=== PATIENT | male | born 1985 | race African-American/Black ===

== ENCOUNTER 2017-10-07 13:14 | Emergency (ER) | payer SELFPAY ==
[2017-10-07 13:39] VITALS: BP 138/84; PULSE 99; RESP 18; TEMP 97.4
[2017-10-07 14:20] LABS: Appearance,Urine Clear (Clear); Bacteria,Urine Rare /hpf; Bilirubin,Urine Negative (Negative); Glucose,Urine (UA) Negative (Negative); Ketones,Urine Negative (Negative); Leukocyte Esterase,Urine Large (Negative); Mucus,Urine Few /hpf; Nitrite,Urine Negative (Negative); PH, Urine 6.5 (5.0-8.0); Particle Count 4157; Protein,Urine Trace (Negative); Specific Gravity,Urine 1.021 (1.001-1.035); UA Billing (MACRO vs. MICRO) MICRO; WBC,Urine 56 /hpf (0-5)
--- NOTE | 2017-10-07 14:24 | ED ---
General Adult HPI - General Chief complaint: Recheck/Abnormal Lab/Rx Stated complaint: numbness in hands & feet Time Seen by Provider: 10/07/17 13:42 Source: patient, RN notes reviewed Mode of arrival: ambulatory Limitations: no limitations - History of Present Illness Initial comments: This is a 32-year-old male who presents to emergency department with chief complaint of numbness and tingling. Patient states that for the past month his right hand and left leg have felt like pins and needles. He states that 3 months ago he started donating plasma. He also reports that he has a history of "shattered bones" in his left lower extremity. Patient states that the numbness and tingling is localized to digits 1through 3 on both palmar and dorsal aspect of right hand. He also reports that for the past week he has had burning when he urinates as well as a clear/white discharge. He reports that his girlfriend was recently tested and was negative for any STDs. Denies any genital sores. He states that his genital region has also been feeling numb. Denies fever, chills, chest pain, shortness of breath, abdominal pain, nausea or vomiting, constipation or diarrhea, hematuria, headache or vision changes. - Related Data Previous Rx's Medication Instructions Recorded Sulfamethox-Tmp 800-160Mg [Bactrim 1 tab PO Q12HR #20 tab 10/07/17 DS 800-160 mg] Allergies Allergy/AdvReac Type Severity Reaction Status Date / Time peach Allergy Swelling Verified 10/07/17 13:39 Review of Systems ROS Statement: Those systems with pertinent positive or pertinent negative responses have been documented in the HPI. ROS Other: All systems not noted in ROS Statement are negative. Past Medical History Past Medical History: No Reported History History of Any Multi-Drug Resistant Organisms: None Reported Past Surgical History: No Surgical Hx Reported Past Psychological History: Depression Smoking Status: Current every day smoker Past Alcohol Use History: None Reported Past Drug Use History: None Reported General Exam - General Exam Comments Initial Comments: General: Awake and alert, well-developed; in no apparent distress. HEENT: Head atraumatic, normocephalic. Pupils are equal, round and reactive to light. Extraocular movements intact. Neck: Supple. Normal ROM. Cardiovascular: Regular rate and rhythm. No murmurs, rubs or gallops. Chest symmetrical. Respiratory: Lungs clear to auscultation bilaterally. No wheezes, rales or rhonchi. Normal respiratory effort with no use of accessory muscles. Musculoskeletal: Normal ROM, no tenderness bilateral upper and lower extremities. Sensation is intact. Pulses are 2+ equal and palpable bilaterally. Skin: [place], warm and dry without rashes or lesions. Neurological: Alert and oriented x3. CN II-XII grossly intact. Speech is fluent and answers are appropriate. No focal neuro deficits. Psychiatric: Normal mood and affect. No overt signs of depression or anxiety noted. Limitations: no limitations Course Vital Signs 10/07/17 13:36 Temperature 97.4 F L Pulse Rate 99 Respiratory 18 Rate Blood Pressure 138/84 O2 Sat by Pulse 100 Oximetry Medical Decision Making - Medical Decision Making This is a 32-year-old male who presents to the emergency department with chief complaint of numbness and tingling. Patient states his right hand and left lower extremity have felt like pins and needles for the past month. CBC and CMP were unremarkable. Electrolyte are normal. He also complains of dysuria and discharge for the past one week. He requests to be tested for STDs. Urine chlamydia and gonorrhea are send out tests so we will not know the results for the next couple of days. Patient's UA revealed the presence of leukocyte esterase high count of white blood cells. Patient will be treated for UTI as well as STD since are not unable to tell at this point what patient is positive for. Treated with ceftriaxone and azithromycin while in the emergency department. Will be discharged home with a prescription for Bactrim. Patient is in agreement with understanding. All questions answered. Disposition Clinical Impression: Possible exposure to STD, Possible urinary tract infection Disposition: HOME SELF-CARE Condition: Good Instructions: Urinary Tract Infection in Men (ED) Additional Instructions: You will be contacted in the next few days if Chlamydia or gonorrhea tests are positive. Please take medications as prescribed. Please follow up with primary care provider within 1-2 days. Return to emergency department if symptoms should worsen or any concerns arise. Prescriptions: Sulfamethox-Tmp 800-160Mg [Bactrim DS 800-160 mg] 1 tab PO Q12HR #20 tab Referrals: None,Stated [Primary Care Provider] - 1-2 days Time of Disposition: 15:21
[2017-10-07 14:32] LABS: Basophils # (A) 0.1 k/uL (0-0.2); Basophils % (A) 1 %; CH 30.8; CHCM 33.2; Eosinophils # (A) 0.2 k/uL (0-0.7); Eosinophils % (A) 3 %; HCT 44.8 % (39.0-53.0); HDW 2.12; HGB 14.1 gm/dL (13.0-17.5); Luc # (Auto) 0.11; Luc % (Auto) 2; Lymphocytes # (A) 2.1 k/uL (1.0-4.8); Lymphocytes % (A) 36 %; MCH 29.4 pg (25.0-35.0); MCHC 31.5 g/dL (31.0-37.0); MCV 93.3 fL (80.0-100.0); Mean Platelet Volume 7.2; Monocytes # (A) 0.4 k/uL (0-1.0); Monocytes % (A) 7 %; Neutrophils % (A) 51 %; RDW 13.9 % (11.5-15.5); WBC 5.9 k/uL (3.8-10.6); WBC (Perox) 6.12
[2017-10-07 14:42] LABS: ALT 30 U/L (21-72); AST 26 U/L (17-59); Alkaline Phosphatase 49 U/L (38-126); Anion Gap 9 mmol/L; Blood Urea Nitrogen 14 mg/dL (9-20); Calcium 10.2 mg/dL (8.4-10.2); Carbon Dioxide 27 mmol/L (22-30); Chloride 104 mmol/L (98-107); Glucose 115 mg/dL (74-99); Non-African American GFR(MDRD) >60 (>60 ml/min/1.73 sqM); Potassium 3.9 mmol/L (3.5-5.1); Sodium 140 mmol/L (137-145); Total Bilirubin 0.5 mg/dL (0.2-1.3); Total Protein 7.9 g/dL (6.3-8.2)
[2017-10-07] MEDS ORDERED: cefTRIAXone 250 MG VIAL IM STA (14:53)
[2017-10-07] MEDS ORDERED: AZITHROMYCIN 500 MG TAB PO STA (14:53)
== END 2017-10-07 15:26 | disposition home or self-care (01) ==
LOC: EC 13:14
DX: Z20.2 Contact with and (suspected) exposure to infections with a predominantly sexual mode of transmission (principal); D72.829 Elevated white blood cell count, unspecified; R20.0 Anesthesia of skin; R20.2 Paresthesia of skin; F17.200 Nicotine dependence, unspecified, uncomplicated; Z91.018 Allergy to other foods
CPT/HCPCS: 36415; 80053; 85025; 81001; 87491; 87591; 99284; 96372; J0696

== ENCOUNTER 2018-11-11 22:20 | Emergency (ER) | payer OTHER ==
[2018-11-11 22:34] VITALS: BP 122/86; PULSE 87; RESP 18; TEMP 98.1
--- NOTE | 2018-11-11 23:39 | ED ---
ENT HPI - General Chief complaint: ENT Stated complaint: Sore throat Time Seen by Provider: 11/11/18 22:35 Source: patient Mode of arrival: ambulatory Limitations: no limitations - History of Present Illness Initial comments: This patient is a 33-year-old man who presents to be evaluated for swollen area in his right neck. The patient states this been going on for a number days, worse for the past 3-4 days. He indicates the right submandibular area. He states that there is a little pressure but not really any pain. He notices that it does seem to increase in swelling and discomfort when he eats something. He has not had any fever or chills. There has not been any warmth or redness. He is not having any difficulty with speech, breathing, or swallowing. MD complaint: other (Swelling to the right neck) Onset/Timin -: days(s) Location: other (Anterior neck) Severity: mild Quality: dull Consistency: constant Improves with: none Worsens with: eating - Related Data Previous Rx's Medication Instructions Recorded Amoxicillin/Potassium Clav 1 tab PO Q12HR #14 tab 11/11/18 [Augmentin 875-125 Tablet] Allergies Allergy/AdvReac Type Severity Reaction Status Date / Time peach Allergy Swelling Verified 11/11/18 22:45 Review of Systems ROS Statement: Those systems with pertinent positive or pertinent negative responses have been documented in the HPI. ROS Other: All systems not noted in ROS Statement are negative. Constitutional: Denies: fever, chills ENT: Reports: as per HPI Respiratory: Denies: cough, dyspnea Cardiovascular: Denies: chest pain Skin: Denies: rash Neurological: Denies: headache Past Medical History Past Medical History: No Reported History History of Any Multi-Drug Resistant Organisms: None Reported Past Surgical History: No Surgical Hx Reported Past Psychological History: No Psychological Hx Reported Smoking Status: Current every day smoker Past Alcohol Use History: None Reported Past Drug Use History: Marijuana General Exam Limitations: no limitations General appearance: alert, in no apparent distress Head exam: Present: atraumatic, normocephalic Eye exam: Present: normal appearance ENT exam: Present: normal oropharynx, mucous membranes moist, TM's normal bilaterally, normal external ear exam, other (Patient has enlargement of the submandibular gland on the right. No warmth or erythema. No real tenderness.) Neck exam: Present: normal inspection, full ROM, other (See above). Absent: tenderness, meningismus, lymphadenopathy Respiratory exam: Present: normal lung sounds bilaterally. Absent: respiratory distress, wheezes, rales, rhonchi, stridor Cardiovascular Exam: Present: regular rate, normal rhythm, normal heart sounds. Absent: systolic murmur, diastolic murmur, rubs, gallop Neurological exam: Present: alert, other (Speech normal) Skin exam: Present: warm, dry, intact, normal color. Absent: rash, erythema Course Vital Signs 11/11/18 22:30 Temperature 98.1 F Pulse Rate 87 Respiratory 18 Rate Blood Pressure 122/86 O2 Sat by Pulse 100 Oximetry Disposition Clinical Impression: Sialolith Disposition: HOME SELF-CARE Condition: Good Instructions: Sialoadenitis (ED) Additional Instructions: As we discussed, if you should develop any symptoms suggestive of infection, start taking the antibiotic prescription. Prescriptions: Amoxicillin/Potassium Clav [Augmentin 875-125 Tablet] 1 tab PO Q12HR #14 tab Is patient prescribed a controlled substance at d/c from ED?: No Referrals: None,Stated [Primary Care Provider] - 1-2 days Mikey Mathews DO [Doctor of Osteopathic Medicine] - 1-2 days
== END 2018-11-11 23:52 | disposition home or self-care (01) ==
LOC: EC 22:20
DX: K11.5 Sialolithiasis (principal); F17.200 Nicotine dependence, unspecified, uncomplicated; Z91.018 Allergy to other foods
CPT/HCPCS: 99282

== ENCOUNTER 2019-12-22 19:47 | Emergency (ER) | payer OTHER ==
[2019-12-22] MEDS ORDERED: ACETAMINOPHEN TAB 500 MG TAB PO STA (20:03)
[2019-12-22] MEDS ORDERED: IBUPROFEN 600 MG TAB PO STA (20:03)
--- NOTE | 2019-12-22 20:11 | ED ---
General Adult HPI - General Chief complaint: Upper Respiratory Infection Stated complaint: fever Time Seen by Provider: 12/22/19 19:56 Source: patient, RN notes reviewed Mode of arrival: ambulatory Limitations: no limitations - History of Present Illness Initial comments: 34-year-old male presents to the emergency department for a chief complaint of fever. Patient states he has had a fever for the past 3 days. States he has had cough and congestion with this. States cough is nonproductive. Patient does admit to smoking but states he has not been smoking since he got sick. He hasnt taken Motrin or Tylenol. He denies headache or neck pain. Denies nausea vomiting diarrhea. Denies abdominal pain. Denies any immunosuppressive features. Patient has no other complaints at this time including shortness of breath, chest pain, abdominal pain, nausea or vomiting, headache, or visual changes. - Related Data Previous Rx's Medication Instructions Recorded Amoxicillin/Potassium Clav 1 tab PO Q12HR #14 tab 11/11/18 [Augmentin 875-125 Tablet] Allergies Allergy/AdvReac Type Severity Reaction Status Date / Time peach Allergy Swelling Verified 12/22/19 19:51 Review of Systems ROS Statement: Those systems with pertinent positive or pertinent negative responses have been documented in the HPI. ROS Other: All systems not noted in ROS Statement are negative. Past Medical History Past Medical History: No Reported History History of Any Multi-Drug Resistant Organisms: None Reported Past Surgical History: No Surgical Hx Reported Past Psychological History: No Psychological Hx Reported Smoking Status: Current every day smoker Past Alcohol Use History: None Reported Past Drug Use History: Marijuana General Exam Limitations: no limitations General appearance: alert, in no apparent distress Head exam: Present: atraumatic, normocephalic, normal inspection Eye exam: Present: normal appearance, PERRL, EOMI. Absent: scleral icterus, conjunctival injection, periorbital swelling ENT exam: Present: normal exam, normal oropharynx, mucous membranes moist, TM's normal bilaterally, normal external ear exam Neck exam: Present: normal inspection. Absent: tenderness, meningismus, lymphadenopathy Respiratory exam: Present: normal lung sounds bilaterally. Absent: respiratory distress, wheezes, rales, rhonchi, stridor Cardiovascular Exam: Present: regular rate, normal rhythm, normal heart sounds. Absent: systolic murmur, diastolic murmur, rubs, gallop, clicks GI/Abdominal exam: Present: soft, normal bowel sounds. Absent: distended, tenderness, guarding, rebound, rigid Neurological exam: Present: alert Course Vital Signs 12/22/19 19:48 Temperature 101.5 F H Pulse Rate 107 H Respiratory 18 Rate Blood Pressure 119/69 O2 Sat by Pulse 100 Oximetry Medical Decision Making - Medical Decision Making Vitals are stable. Heart rate of 107 is likely reflexive of fever with a temperature of 101.5. Patient was given Motrin and Tylenol. He is well appearing. Physical exam is generally unremarkable. Chest x-ray shows no acute cardio pulmonary process. Influenza B is detected. Discussed risks versus benefits of Tamiflu, patient is out of the window at this time. Patient will follow up with primary care. He will drink plenty of fluids. Discussed Motrin and Tylenol. He will return here if he has any worsening symptoms. - Lab Data Lab Results 12/22/19 Range/Units 20:14 Influenza Type A RNA Not Detected (Not Detectd) Influenza Type B (PCR) Detected H (Not Detectd) Disposition Clinical Impression: Influenza B Disposition: HOME SELF-CARE Condition: Good Instructions (If sedation given, give patient instructions): Influenza (ED) Additional Instructions: Please take Motrin and Tylenol for fever. Drink plenty of fluids. Follow up with primary care in 1-2 days. Return to the emergency department if you have any worsening symptoms Is patient prescribed a controlled substance at d/c from ED?: No Referrals: Codi Newberry MD [REFERRING] - 1-2 days Time of Disposition: 20:59
--- NOTE | 2019-12-22 20:25 | XR ---
EXAMINATION TYPE: XR chest 2V DATE OF EXAM: 12/22/2019 COMPARISON: None HISTORY: 34-year-old male cough and fever TECHNIQUE: PA and lateral views FINDINGS: The cardiomediastinal silhouette, aorta, and pulmonary vasculature are within normal limits. Lungs an d pleural spaces are clear. IMPRESSION: No acute cardiopulmonary process.
[2019-12-22 21:09] VITALS: BP 110/67; PULSE 87; RESP 20; TEMP 100.2
== END 2019-12-22 21:09 | disposition home or self-care (01) ==
LOC: EC 19:47
DX: J10.1 Influenza due to other identified influenza virus with other respiratory manifestations (principal); F17.200 Nicotine dependence, unspecified, uncomplicated; Z91.018 Allergy to other foods
CPT/HCPCS: 71046; 87502; 99283